=== PATIENT | female | born 1980 | race Caucasian/White ===

== ENCOUNTER 2018-04-28 21:40 | Emergency (ER) | payer OTHER ==
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
[2018-04-28] MEDS ORDERED: OXYCODONE/APAP 5/325 TAB ONE (21:48)
[2018-04-28] MEDS ORDERED: OXYCODONE/APAP 5/325 TAB PO ONE (21:50)
[2018-04-28] MEDS ORDERED: OXYCODONE/APAP 5/325MG PREPACK#4 BTL TAKEHOME ONE (22:09)
[2018-04-28 23:05] VITALS: BP 158/98
== END 2018-04-28 23:05 | disposition home or self-care (01) ==
PROC: 0QS Lower Bones, Reposition (ICD-10-PCS; principal; 2018-04-28)
DX: S82.422A Displaced transverse fracture of shaft of left fibula, initial encounter for closed fracture (principal); M25.551 Pain in right hip; V13.4XXA Pedal cycle driver injured in collision with car, pick-up truck or van in traffic accident, initial encounter; Y92.410 Unspecified street and highway as the place of occurrence of the external cause

== ENCOUNTER 2019-02-07 02:38 | Emergency (ER) | payer OTHER | END 2019-02-07 04:13 ==